=== PATIENT | female | born 1995 | race Caucasian/White ===

== ENCOUNTER 2021-01-25 11:54 | Emergency (ER) | payer OTHER ==
[~2021-01-25] VITALS: Ht 165.1 cm; Wt 75.0 kg
[2021-01-25 12:32] VITALS: TEMP 98.4
[2021-01-25] MEDS ORDERED: BACTRIM DS 8001 TAB PO (12:58)
[2021-01-25 13:30] VITALS: BP 118/66; PULSE 108
== END 2021-01-25 13:30 | disposition home or self-care (01) ==
LOC: COL.ER 11:54
DX: N75.1 Abscess of Bartholin's gland (principal); F17.200 Nicotine dependence, unspecified, uncomplicated